=== PATIENT | male | born 1960 | race Caucasian/White ===

== ENCOUNTER 2017-08-14 10:33 | Emergency (ER) | payer BC, OTHER ==
[~2017-08-14] VITALS: Ht 180.3 cm; Wt 90.7 kg
--- OUTSIDE RECORDS SUMMARY | 2017-08-14 10:35 | XMS REPORT ---
Author Author [facility] Address Unknown Phone Unavailable Care Team Providers Care Tracer Bullet Section Supervisor Name Role Phone DENEEN HERZOG Unavailable Unavailable Problems This patient has no known problems. Allergies, Adverse Reactions, Alerts This patient has no known allergies or adverse reactions. Medications This patient has no known medications. Results Test Description Test Time Test Comments Text Results Atomic Results Result Comments GLUCOMETER GLUCOSE- LAB USE ONLY 2016-09-21 09:47:00 GLUCOMETER (test code=GMG) 141 mg/dL 70-100 Meter ID: [id number]: [id number] YES[address]AULEY GLUCOMETER GLUCOSE- LAB USE [id number] 07:47:00* Test Item Value Reference Range Comments GLUCOMETER (test code=GMG) 140 mg/dL 70-100 Meter ID: [id number]: [id number]
[2017-08-14] MEDS ORDERED: ASPIRIN 81 MG CHEW TAB PO ONE (11:15)
--- NOTE | 2017-08-14 11:53 | Diagnostic Imaging Report ---
PROCEDURE: A single AP view of the chest. COMPARISON: None. INDICATIONS: CHEST DISCOMFORT TODAY, HIGH DIASTOLIC PRESSURE FINDINGS: Lines/tubes: None. Lungs: The lungs are well inflated and clear. There is no evidence of pneumonia or pulmonary edema. Pleura: There is no pleural effusion or pneumothorax. Heart and mediastinum: The heart and the mediastinum are unremarkable. Bones: No acute bony abnormality. IMPRESSION: 1. No acute cardiopulmonary abnormalities. Jerod Cole M.D. Dictated by: Jerod Cole M.D. on 08/14/2017 at 11:55 Electronically approved by: Jerod Cole M.D. on 08/14/2017 at 11:55
[2017-08-14 12:42] LABS: BASOPHILS % 0.4 % (0.0-1.0); EOSINOPHILS % 0.4 % (0.0-6.0); HEMATOCRIT 44.1 % (38.2-49.6); HEMOGLOBIN 14.9 g/dL (14.0-18.0); LYMPHOCYTES # (AUTO) 1.2 (1.0-3.2); LYMPHOCYTES % 14.2 % (18.0-39.1); MEAN CORPUSCULAR HEMOGLOBIN 30.4 pg (28-32); MEAN CORPUSCULAR HGB CONC 33.8 g/dL (31-35); MONOCYTES # (AUTO) 1.1 (0.2-0.8); MONOCYTES % 12.8 % (4.4-11.3); NEUTROPHILS # (AUTO) 5.9 (2.1-6.9); NEUTROPHILS % 71.7 % (38.7-80.0); PLATELET COUNT 198 x10e3/uL (140-360); RED CELL DISTRIBUTION WIDTH 12.1 % (11.7-14.4)
[2017-08-14 12:54] LABS: INR 1.03; PROTHROMBIN TIME 12.7 seconds (11.9-14.5)
[2017-08-14 12:55] LABS: PARTIAL THROMBOPLASTIN TIME 36.2 seconds (23.8-35.5)
[2017-08-14 13:04] LABS: ALANINE AMINOTRANSFERASE 18 IU/L (0-55); ALBUMIN 4.2 g/dL (3.5-5.0); ALBUMIN/GLOBULIN RATIO 1.1 (0.8-2.0); ALKALINE PHOSPHATASE 80 IU/L (40-150); ANION GAP 16.3 mmol/L (8-16); BLOOD UREA NITROGEN 25 mg/dL (7-26); BUN/CREATININE RATIO 22 (6-25); CALCIUM 10.2 mg/dL (8.4-10.2); CARBON DIOXIDE 23 mmol/L (22-29); CHLORIDE 102 mmol/L (98-107); CREATINE KINASE 32 IU/L (30-200); CREATININE, SERUM 1.12 mg/dL (0.72-1.25); EST GLOMERULAR FILTRATION RATE > 60 ML/MIN (60-); GLUCOSE 96 mg/dL (74-118); POTASSIUM 4.3 mmol/L (3.5-5.1); SODIUM 137 mmol/L (136-145)
[2017-08-14] MEDS ORDERED: DIAZEPAM 5 MG TAB PO NR (15:00)
[2017-08-14] MEDS ORDERED: HYDROCODONE/APAP 5MG-325MG TAB PO NR (15:00)
== END 2017-08-14 16:39 | disposition home or self-care (01) ==
LOC: ER 10:33
CPT/HCPCS: 36415; 71045; 80053; 82550; 82553; 84484; 85025; 85610; 85730; 93005; 99284

== ENCOUNTER 2020-08-12 10:04 | Emergency (ER) | payer BC ==
[~2020-08-12] VITALS: Ht 180.3 cm; Wt 90.7 kg
[2020-08-12] MEDS ORDERED: AUGMENTIN 875-1 EACH PO (11:45)
[2020-08-12 11:47] VITALS: BP 129/80
== END 2020-08-12 11:51 | disposition home or self-care (01) ==
LOC: ER 10:28
DX: L03.012 Cellulitis of left finger (principal); I10 Essential (primary) hypertension; E11.9 Type 2 diabetes mellitus without complications; E78.5 Hyperlipidemia, unspecified; I50.9 Heart failure, unspecified; K21.9 Gastro-esophageal reflux disease without esophagitis; Z96.642 Presence of left artificial hip joint
CPT/HCPCS: 99283

== ENCOUNTER 2022-10-19 11:48 | Inpatient (IN) | payer BC ==
[~2022-10-19] VITALS: Ht 180.3 cm; Wt 86.2 kg
[~2022-10-19 11:48] MED LIST: AUGMENTIN 875-1 EACH PO
[2022-10-19] MEDS ORDERED: DEXAMETHASONE PHOS 4MG/ML 5ML MULTIDOSE VIAL IV STA (12:09)
[2022-10-19] MEDS ORDERED: METRONIDAZOLE 500MG/NS 100ML 100 ML IV ONE (12:15)
[2022-10-19 12:37] LABS: BASOPHILS % 0.4 % (0.0-1.0); EOSINOPHILS % 0.3 % (0.0-6.0); HEMATOCRIT 43.3 % (38.2-49.6); HEMOGLOBIN 13.6 g/dL (14.0-18.0); LYMPHOCYTES # (AUTO) 0.8 (1.0-3.2); LYMPHOCYTES % 11.1 % (18.0-39.1); MEAN CORPUSCULAR HEMOGLOBIN 27.8 pg (28-32); MEAN CORPUSCULAR HGB CONC 31.4 g/dL (31-35); MEAN CORPUSCULAR VOLUME 88.4 fL (81-99); MONOCYTES # (AUTO) 0.7 (0.2-0.8); MONOCYTES % 10.5 % (4.4-11.3); NEUTROPHILS # (AUTO) 5.4 (2.1-6.9); NEUTROPHILS % 77.3 % (38.7-80.0); PLATELET COUNT 156 x10e3/uL (140-360); RED CELL DISTRIBUTION WIDTH 14.6 % (11.7-14.4)
[2022-10-19 13:00] LABS: ANION GAP 16.2 mmol/L (8-16); CALCIUM 9.2 mg/dL (8.4-10.2); CREATININE, SERUM 1.53 mg/dL (0.72-1.25); POTASSIUM 4.2 mmol/L (3.5-5.1)
[2022-10-19 13:02] LABS: COLOR,URINE STRAW (YELLOW)
[2022-10-19 13:03] LABS: CLARITY,URINE SL CLOUDY (CLEAR); KETONES,URINE NEGATIVE (NEGATIVE); LEUKOCYTE ESTERASE ,URINE NEGATIVE (NEGATIVE); NITRITE,URINE NEGATIVE (NEGATIVE); PROTEIN,URINE DIPSTICK NEGATIVE (NEGATIVE); URINE UROBILINOGEN 0.2 mg/dL (0.2 - 1)
[2022-10-19] MEDS ORDERED: IOPAMIDOL 370 MG/ML 100 ML INFUS..BTL INJ ONE (13:07)
[2022-10-19 13:11] LABS: RBC,URINE 0-5 /HPF (0-5); WBC,URINE (MAN) 0-5 /HPF (0-5)
[2022-10-19 13:12] LABS: BACTERIA,URINE FEW /HPF; EPITHELIAL CELLS,URINE RARE /LPF
[2022-10-19] MEDS: SODIUM CHLORIDE 0.9% 1000ML 1,000 ML IV SCH ×2 (14:42→16:33)
[2022-10-19] MEDS ORDERED: DEXAMETHASONE SOD PHOS INJ 4 MG/ML SDV IV ONE (14:45)
[2022-10-19] MEDS ORDERED: HYDROCODONE/APAP 5MG-325MG TAB PO PRN (15:45)
[2022-10-19] MEDS: Clindamycin INJ 300 MG/50 ML 50 ML IV SCH (18:22)
[2022-10-19 20:00] VITALS: BP 107/71; PULSE 88; RESP 18; TEMP 98.3; O2SAT 100
[2022-10-19] MEDS ORDERED: ENTRESTO 49 MG1 EACH PO (20:30)
[2022-10-19] MEDS ORDERED: FUROSEMIDE40 MG PO (20:30)
[2022-10-19] MEDS ORDERED: METFORMIN HCL500 MG PO (20:30)
[2022-10-19] MEDS ORDERED: LANSOPRAZOLE30 MG PO (20:30)
[2022-10-19] MEDS ORDERED: CARVEDILOL3.125 MG PO (20:30)
[2022-10-19 23:24] VITALS: BP 107/71; PULSE 88; RESP 18; TEMP 98.3; O2SAT 100
[2022-10-19 23:31] VITALS: BP 107/71; PULSE 88; RESP 18; TEMP 98.3; O2SAT 100
[2022-10-20] VITALS (8 sets, daily range): BP systolic 102–127; BP diastolic 67–85; PULSE 72–80; RESP 18–20; TEMP 97.9–98.7; O2SAT 94–98
[2022-10-20] MEDS: Clindamycin INJ 300 MG/50 ML 50 ML IV SCH ×2 (02:26→09:00)
[2022-10-20] MEDS: SODIUM CHLORIDE 0.9% 1000ML 1,000 ML IV SCH ×3 (02:27→17:09)
[2022-10-20 05:55] LABS: BASOPHILS % 0.2 % (0.0-1.0); HEMATOCRIT 37.8 % (38.2-49.6); HEMOGLOBIN 11.9 g/dL (14.0-18.0); LYMPHOCYTES % 19.7 % (18.0-39.1); MEAN CORPUSCULAR HEMOGLOBIN 27.5 pg (28-32); MEAN CORPUSCULAR HGB CONC 31.5 g/dL (31-35); MEAN CORPUSCULAR VOLUME 87.3 fL (81-99); MONOCYTES # (AUTO) 0.8 (0.2-0.8); MONOCYTES % 15.2 % (4.4-11.3); NEUTROPHILS # (AUTO) 3.2 (2.1-6.9); NEUTROPHILS % 64.5 % (38.7-80.0); PLATELET COUNT 154 x10e3/uL (140-360); RED BLOOD COUNT 4.33 x10e6/uL (4.3-5.7); RED CELL DISTRIBUTION WIDTH 14.3 % (11.7-14.4)
[2022-10-20 06:20] LABS: CALCIUM 8.8 mg/dL (8.4-10.2); CREATININE, SERUM 1.25 mg/dL (0.72-1.25)
[2022-10-20] MEDS ORDERED: CLINDAMYCIN 600MG / 50ML 50 ML IV ONE ×2 (11:00→21:00)
[2022-10-20] MEDS: HYDROCODONE/APAP 5MG-325MG TAB PO PRN ×2 (12:16→18:48)
[2022-10-20] MEDS ORDERED: DEXTROSE 50% SYRINGE 50 ML IV PRN ×2 (16:45)
[2022-10-20] MEDS ORDERED: METFORMIN HCL 500 MG TAB PO SCH (17:00)
[2022-10-20] MEDS: INSULIN LISPRO 100 UNIT/1 ML 3ML VIAL SQ SCH ×2 (17:06→20:39)
[2022-10-20] MEDS ORDERED: DIPHENHYDRAMINE HCL 25 MG CAP PO PRN (22:15)
[2022-10-21] VITALS (7 sets, daily range): BP systolic 110–130; BP diastolic 63–86; PULSE 75–84; RESP 18–19; TEMP 97.7–98.5; O2SAT 94–100
[2022-10-21] MEDS: HYDROCODONE/APAP 5MG-325MG TAB PO PRN ×3 (04:28→21:10)
[2022-10-21 06:54] LABS: BASOPHILS % 0.7 % (0.0-1.0); EOSINOPHILS # (AUTO) 0.1 (0.0-0.4); EOSINOPHILS % 0.9 % (0.0-6.0); HEMATOCRIT 36.7 % (38.2-49.6); HEMOGLOBIN 11.5 g/dL (14.0-18.0); LYMPHOCYTES # (AUTO) 1.4 (1.0-3.2); LYMPHOCYTES % 23.9 % (18.0-39.1); MEAN CORPUSCULAR HEMOGLOBIN 27.4 pg (28-32); MEAN CORPUSCULAR HGB CONC 31.3 g/dL (31-35); MEAN CORPUSCULAR VOLUME 87.6 fL (81-99); MONOCYTES # (AUTO) 0.7 (0.2-0.8); MONOCYTES % 11.7 % (4.4-11.3); NEUTROPHILS # (AUTO) 3.7 (2.1-6.9); NEUTROPHILS % 62.6 % (38.7-80.0); PLATELET COUNT 162 x10e3/uL (140-360); RED BLOOD COUNT 4.19 x10e6/uL (4.3-5.7); RED CELL DISTRIBUTION WIDTH 14.5 % (11.7-14.4)
[2022-10-21] MEDS: INSULIN LISPRO 100 UNIT/1 ML 3ML VIAL SQ SCH ×4 (07:30→20:03)
[2022-10-21 07:37] LABS: ANION GAP 9.9 mmol/L (8-16); CALCIUM 8.7 mg/dL (8.4-10.2); CREATININE, SERUM 1.12 mg/dL (0.72-1.25); POTASSIUM 3.9 mmol/L (3.5-5.1)
[2022-10-21] MEDS ORDERED: NON-FORMULARY MEDICATION (Lansoprazole 30 MG) PO SCH (09:00)
[2022-10-21] MEDS: METFORMIN HCL 500 MG TAB PO SCH ×2 (10:01→16:16)
[2022-10-21] MEDS: FUROSEMIDE 20 MG TAB PO SCH (10:02)
[2022-10-21] MEDS: PANTOPRAZOLE SOD 40 MG TABEC PO SCH (10:02)
[2022-10-21] MEDS: LIDOCAINE 4% PATCH TP SCH (12:13)
[2022-10-22 03:55] VITALS: BP 142/79; PULSE 83; RESP 17; TEMP 98.1; O2SAT 97
[2022-10-22] MEDS: INSULIN LISPRO 100 UNIT/1 ML 3ML VIAL SQ SCH ×3 (08:36→16:30)
[2022-10-22] MEDS: FUROSEMIDE 20 MG TAB PO SCH (08:36)
[2022-10-22] MEDS: METFORMIN HCL 500 MG TAB PO SCH (08:37)
[2022-10-22] MEDS: LIDOCAINE 4% PATCH TP SCH (08:37)
[2022-10-22] MEDS: PANTOPRAZOLE SOD 40 MG TABEC PO SCH (08:37)
[2022-10-22 09:16] VITALS: BP 144/87; PULSE 80; RESP 19; TEMP 98.1; O2SAT 95
[2022-10-22 09:42] VITALS: BP 144/87; PULSE 80; RESP 19; TEMP 98.1; O2SAT 95
[2022-10-22 12:49] VITALS: BP 128/91; PULSE 70; RESP 20; TEMP 98.1; O2SAT 95
== END 2022-10-22 17:34 | disposition home or self-care (01) | DRG 156 ==
LOC: ER 11:58 → ERHOLD 15:42 → MED/SURG2 18:34
PROVIDERS: ADMIT Internal Medicine; ATTEND Internal Medicine
DX: K11.20 Sialoadenitis, unspecified (principal); I11.0 Hypertensive heart disease with heart failure; I50.9 Heart failure, unspecified; K21.9 Gastro-esophageal reflux disease without esophagitis; E78.5 Hyperlipidemia, unspecified; G47.30 Sleep apnea, unspecified; E11.65 Type 2 diabetes mellitus with hyperglycemia; Z20.822 Contact with and (suspected) exposure to COVID-19; Z79.84 Long term (current) use of oral hypoglycemic drugs; Z96.651 Presence of right artificial knee joint; Z95.810 Presence of automatic (implantable) cardiac defibrillator; Z96.642 Presence of left artificial hip joint; Z88.2 Allergy status to sulfonamides
CPT/HCPCS: 36415; 70491; 80048; 81001; 82948; 85025; 87086; 94760; 99284; J1100; J2543; J7030; Q9967